=== PATIENT | male | born 1940 | race Caucasian/White ===

== ENCOUNTER 2023-02-26 06:57 | Emergency (ER) | payer MEDICARE, OTHER ==
[~2023-02-26] VITALS: Ht 170 cm; Wt 175.0 kg
[~2023-02-26 06:57] MED LIST: AMLO-250 PO; BLACK PEPPER PO; CALC1TAB84 PO; FISH1CAP15 PO; MULT-301 PO; MULT-517 PO; OMEG-109 PO; OMEG-118 PO; OMEP20CA18 PO; POTA10TA10 PO; PUMP160C PO; TRIA1TAB3 PO; TURMERIC PO; VIT1CAPS4 PO; [UNRECOGNIZED DRUG - CODE] PO; [UNRECOGNIZED DRUG - OTHER] PO
[2023-02-26 07:31] LABS: BASOPHILS % (AUTO) 0 % (0-10); EOSINOPHILS % (AUTO) 0 % (0-10); HEMATOCRIT 34 % (40-54); HEMOGLOBIN 11.2 g/dL (13.3-17.7); LYMPHOCYTES # (AUTO) 0.7 10^3/uL (1.0-4.0); LYMPHOCYTES % (AUTO) 5 % (12-44); MEAN CORPUSCULAR HEMOGLOBIN 29 pg (25-34); MEAN CORPUSCULAR HGB CONC 33 g/dL (32-36); MEAN CORPUSCULAR VOLUME 89 fL (80-99); MEAN PLATELET VOLUME 9.3 fL (9.0-12.2); MONOCYTES # (AUTO) 1.1 10^3/uL (0.0-1.0); MONOCYTES % (AUTO) 8 % (0-12); NEUTROPHILS # (AUTO) 10.8 10^3/uL (1.8-7.8); NEUTROPHILS % (AUTO) 86 % (42-75); PLATELET COUNT 199 10^3/uL (130-400); WHITE BLOOD COUNT 12.6 10^3/uL (4.3-11.0)
--- NOTE | 2023-02-26 07:31 | ED Abdominal Pain ---
General Chief Complaint: Abdominal/GI Problems Stated Complaint: BOWEL OBSTRUCTION Nursing Triage Note: Patient has presented to ER with cc of constipation for the last 10 days. He reports that he stopped taking marilax a few days ago. He did have a laxative a few days ago and had a small bowel movement but none since. He went to his doctor yesterday in [place] and was told to come to ER in [place] this morning to get enemas. Source of Information: Patient Exam Limitations: No Limitations History of Present Illness Date Seen by Provider: Feb 26, 2023 Time Seen by Provider: 06:59 Initial Comments 82-year-old male with past medical history of hypertension, hyperlipidemia, prostate cancer with mets coming in as a referral from his PCP due to "constipation". The patient states that he last had a bowel movement greater than 10 days ago. He is passing flatus. Had some nausea and nonbloody nonbilious emesis several days ago, but none recently. He does have decreased p.o. intake, he states mostly because he forgets to eat. He does endorse some pain, he does take hydrocodone regularly for chronic pain three times a day with no bowel regimen with this. Denies any fevers that he knows of, dysuria, or any other concerns. Of note, he did have a remote history of hernia surgery. Allergies and Home Medications Allergies Coded Allergies: No Known Drug Allergies (Unverified , 04/05/16) Patient Home Medication List Home Medication List Reviewed: Yes Amlodipine Besylate (Amlodipine Besylate) 5 Mg Tablet, 5 MG PO DAILY, (Reported) Entered as Reported by: JIGAR GAYLE on 04/05/16 1216 Calcium Carbonate/Vitamin D3 (Calcium 600 + Vit D 200 Tablet) 1 Each Tablet, 1 TAB PO BID, (Reported) Entered as Reported by: SAEID FATIMA on 08/04/16 1040 Fish Oil/Dha/Epa (Fish Oil 1,200 mg Fish Oil) 1 Each Capsule, 1,200 MG PO BID, (Reported) Entered as Reported by: JIGAR GAYLE on 04/05/16 1216 Multivitamin (Men's Multi-Vitamin) 1 Each Tablet, 1 TAB PO BID, (Reported) Entered as Reported by: SAEID FATIMA on 08/04/16 1040 Gila-3 Fatty Acids/Fish Oil (Fish Oil 1,200 mg Softgel) 1 Each Capsule, 1,200 MG PO BID, (Reported) Entered as Reported by: SAEID FATIMA on 08/04/16 1040 Omeprazole (Omeprazole) 20 Mg Capsule.dr, 20 MG PO DAILY, (Reported) Entered as Reported by: JIGAR GAYLE on 04/05/16 1216 Ondansetron (Ondansetron Odt) 4 Mg Tab.rapdis, 4 MG SL Q6H PRN for NAUSEA/VOMITING Prescribed by: DELMER YAÑEZ on 02/26/23 0908 Polyethylene Glycol 3350 (Miralax) 17 Gram Powd.pack, 17 GM PO TID Prescribed by: DELMER YAÑEZ on 02/26/23 0908 Potassium Chloride (Potassium Chloride) 10 Meq Tablet.er, 10 MEQ PO BID, (Reported) Entered as Reported by: JIGAR GAYLE on 04/05/16 1216 Pumpkin Seed Oil/Saw Wallace (Saw Wallace 160 mg Softgel) 160 Mg Capsule, 160 MG PO DAILY, (Reported) Entered as Reported by: JIGAR GAYLE on 04/05/16 1216 Sennosides/Docusate Sodium (Senna S Tablet) 8.6 Mg-50 Mg Tablet, 1 EACH PO DAILY Prescribed by: DELMER YAÑEZ on 02/26/23 09 Triamterene/Hydrochlorothiazid (Triamterene-Hctz 37.5-25 mg Tb) 1 Each Tablet, 1 EACH PO DAILY, (Reported) Entered as Reported by: JIGAR GAYLE on 04/05/16 1216 Vit C/Dewitt & Celery Ex/Grp E (Tart Dewitt Capsule) 1 Each Capsule, 1 CAP PO DAILY, (Reported) Entered as Reported by: SAEID FATIMA on 08/04/16 1040 Wheat Germ Oil (Wheat Germ Oil) 1 Ml Oil, PO BID, (Reported) Entered as Reported by: SAEID FATIMA on 08/04/16 1040 [Sarsaparilla Root] , 900 MG PO BID, (Reported) Entered as Reported by: SAEID FATIMA on 08/04/16 1040 [Turmeric W/Blkpepper] , 1 TAB PO BID, (Reported) Entered as Reported by: SAEID FATIMA on 08/04/16 1040 Review of Systems Review of Systems Constitutional: No fever Respiratory: No Symptoms Reported Cardiovascular: No Symptoms Reported Gastrointestinal: See HPI Genitourinary: No Symptoms Reported Musculoskeletal: no symptoms reported Skin: no symptoms reported Past Myhfyxa-Zmivcq-Rkqzff Hx Patient Social History Tobacco Use?: No Use of E-Cig and/or Vaping dev: No Substance use?: No Alcohol Use?: No Past Medical History Surgery/Hospitalization HX: hernia repair Surgeries: Yes Physical Exam Vital Signs Vital Signs - First Documented 02/26/23 07:12 Temp 37.0 Pulse 91 Resp 18 B/P (MAP) 144/96 (112) Pulse Ox 95 O2 Delivery Room Air Capillary Refill : Height/Weight/BMI Height: 5'10.00" Weight: 190lbs. 0.0oz. [id number]; 60.00 BMI Method: General Appearance: WD/WN, no apparent distress HEENT: PERRL/EOMI Neck: normal inspection Respiratory: chest non-tender, lungs clear, normal breath sounds, no respiratory distress, no accessory muscle use Cardiovascular: regular rate, rhythm Gastrointestinal: normal bowel sounds, soft; No distended, No guarding, No rebound; tenderness (mild global tenderness) Extremities: normal range of motion, non-tender, normal inspection, no calf tenderness, normal capillary refill Back: normal inspection, no CVA tenderness Neurologic/Psychiatric: no motor/sensory deficits, alert, normal mood/affect Skin: normal color, warm/dry Focused Exam Lactate Level 02/26/23 07:29: Lactic Acid Level 1.49 Lactic Acid Level Laboratory Tests Test 02/26/23 07:29 Lactic Acid Level 1.49 MMOL/L (0.50-2.00) Progress/Results/Core Measures Results/Orders Lab Results Laboratory Tests Test 02/26/23 07:29 Range/Units White Blood Count 12.6 H 4.3-11.0 10^3/uL Red Blood Count 3.81 L 4.30-5.52 10^6/uL Hemoglobin 11.2 L 13.3-17.7 g/dL Hematocrit 34 L 40-54 % Mean Corpuscular Volume 89 80-99 fL Mean Corpuscular Hemoglobin 29 25-34 pg Mean Corpuscular Hemoglobin Concent 33 32-36 g/dL Red Cell Distribution Width 14.3 10.0-14.5 % Platelet Count 199 130-400 10^3/uL Mean Platelet Volume 9.3 9.0-12.2 fL Immature Granulocyte % (Auto) 0 % Neutrophils (%) (Auto) 86 H 42-75 % Lymphocytes (%) (Auto) 5 L 12-44 % Monocytes (%) (Auto) 8 0-12 % Eosinophils (%) (Auto) 0 0-10 % Basophils (%) (Auto) 0 0-10 % Neutrophils # (Auto) 10.8 H 1.8-7.8 10^3/uL Lymphocytes # (Auto) 0.7 L 1.0-4.0 10^3/uL Monocytes # (Auto) 1.1 H 0.0-1.0 10^3/uL Eosinophils # (Auto) 0.0 0.0-0.3 10^3/uL Basophils # (Auto) 0.0 0.0-0.1 10^3/uL Immature Granulocyte # (Auto) 0.0 0.0-0.1 10^3/uL Neutrophils % (Manual) 90 % Lymphocytes % (Manual) 6 % Monocytes % (Manual) 4 % Sodium Level 132 L 135-145 MMOL/L Potassium Level 3.8 3.6-5.0 MMOL/L Chloride Level 100 98-107 MMOL/L Carbon Dioxide Level 20 L 21-32 MMOL/L Anion Gap 12 5-14 MMOL/L Blood Urea Nitrogen 18 7-18 MG/DL Creatinine 1.07 0.60-1.30 MG/DL Estimat Glomerular Filtration Rate 68 BUN/Creatinine Ratio 17 Glucose Level 110 H 70-105 MG/DL Lactic Acid Level 1.49 0.50-2.00 MMOL/L Calcium Level 8.9 8.5-10.1 MG/DL Corrected Calcium 9.1 8.5-10.1 MG/DL Magnesium Level 2.0 1.6-2.4 MG/DL Total Bilirubin 1.5 H 0.1-1.0 MG/DL Aspartate Amino Transf (AST/SGOT) 21 5-34 U/L Alanine Aminotransferase (ALT/SGPT) 10 0-55 U/L Alkaline Phosphatase 113 40-136 U/L Total Protein 6.6 6.4-8.2 GM/DL Albumin 3.8 3.2-4.5 GM/DL Lipase 20 8-78 U/L My Orders Orders - DELMER YAÑEZ MD Ct Abdomen/Pelvis W (02/26/23 07:17) Cbc With Automated Diff (02/26/23 07:17) Comprehensive Metabolic Panel (02/26/23 07:17) Lactic Acid Analyzer (02/26/23 07:17) Lipase (02/26/23 07:17) Magnesium (02/26/23 07:17) Manual Differential (02/26/23 07:29) Iohexol Injection (Omnipaque 350 Mg/Ml 1 (02/26/23 08:00) Received Contrast (Hold Metformin- Contr (02/26/23 08:00) Ns (Ivpb) (Sodium Chloride 0.9% Ivpb Bag (02/26/23 08:00) Methylnaltrexone Injection (Relistor Inj (02/26/23 09:15) Bisacodyl Suppository (Dulcolax Supposit (02/26/23 09:15) Medications Given in ED Current Medications Medications Dose Ordered Sig/Kriss Route Start Time Stop Time Status Last Admin Dose Admin Iohexol 100 ml ONCE ONCE IV 02/26/23 08:00 02/26/23 08:01 DC 02/26/23 08:13 80 ML Sodium Chloride 100 ml ONCE ONCE IV 02/26/23 08:00 02/26/23 08:01 DC 02/26/23 08:13 80 ML Vital Signs/I&O 02/26/23 07:12 Temp 37.0 Pulse 91 Resp 18 B/P (MAP) 144/96 (112) Pulse Ox 95 O2 Delivery Room Air Blood Pressure Mean: 112 Progress Progress Note : Progress Note 82-year-old male with above history coming in due to abdominal discomfort and decreased bowel movements. ABCs were intact and vitals were stable on presentation. Physical exam with abdominal tenderness but no signs of p eritonitis. An IV was placed and basic labs were obtained. CT imaging will also be ordered to evaluate for bowel obstruction versus diverticulitis versus some other etiology. His labs were significant for a mild leukocytosis which is nonspecific, normal potassium, normal creatinine, slightly elevated bilirubin at 1.5, normal AST and ALT, normal alk phos, normal lipase. CT abdomen pelvis on my interpretation with obvious bladder tumor with hydronephrosis on the left. No obvious obstruction. Per the radiology read, no acute findings other than some nonspecific findings around the gallbladder. I did a [id number] ultrasound, he does not have any significant pericholecystic fluid, and his sonographic Chance's was negative. He has no right upper quadrant pain at all, and the pain does not get worse with eating making cholecystitis unlikely. We will give him a subcu injection of methylnaltrexone as well as a Dulcolax suppository here followed by prescription for his constipation. I did discuss hospice care briefly with the patient, he will follow back up with his oncologist. I believe he is otherwise stable for discharge with outpatient follow-up. He was sent home with strict return precautions Diagnostic Imaging Diagonstic Imaging: CT (abd/pelvis) Comments [facility] [place], [place] NAME: ARGELIA GUSMAN [facility] REC#: [id number] PT STATUS: REG ER : 1940 PHYSICIAN: DELMER YAÑEZ MD ADMIT DATE: 02/26/23/ER FS Signed Date of Exam:02/26/23 CT ABDOMEN/PELVIS W PROCEDURE: CT abdomen and pelvis with contrast. TECHNIQUE: Multiple contiguous axial images were obtained through the abdomen and pelvis after administration of intravenous contrast. Auto Exposure Controls were utilized during the CT exam to meet ALARA standards for radiation dose reduction. All CT scans use one or more of the following dose optimizing techniques: automated exposure control, MA and/or KvP adjustment based on patient size and exam type or iterative reconstruction. INDICATION: Abdominal pain no bowel movement. FINDINGS: Included views of the chest demonstrates 0.9 cm pulmonary nodule within the right lower lobe. The liver demonstrates a 0.5 cm cyst within the right hepatic lobe. Scattered sub-diaphragmatic nodular thickening along the right diaphragm measuring up to 0.8 cm. The gallbladder wall is diffusely thickened and demonstrates surrounding fat stranding. There is a calcified gallstone within the gallbladder. The left kidney demonstrates moderate left hydronephrosis with surrounding fat stranding. There is a irregular thickening along the posterior bladder wall measuring 5.6 x 3.5 cm. Multifocal nodular opacity within the region of the seminal vesicles may represent direct extension into the seminal vesicles. Moderately distended urinary bladder. The right kidney is normal. No nephrolithiasis. There is a 8 cm simple cyst in the left kidney. Multinodular mass within the anterior abdominal wall measuring 5.1 x 2.8 cm (image 131 series 3). Sclerotic bone lesion within the L1 vertebral body and within the right acetabulum The spleen, adrenal glands, and pancreas are normal. Scattered diverticula within the sigmoid colon without evidence of acute diverticulitis. Aortoiliac atherosclerosis without aneurysm. IMPRESSION: Large mass within the urinary bladder causing moderate left hydronephrosis with associated fat stranding around the left ureter which may represent superimposed infection or reactive inflammatory change. Distended gallbladder with associated wall thickening may be seen with acute cholecystitis. Multinodular mass within the region of the seminal vesicles may represent a neoplastic process possibly from direct extension or metastasis of the bladder tumor. Nodular mass within the anterior abdominal wall concerning for peritoneal metastatic lesion. A sclerotic lesion within the right acetabulum and L1 vertebral body. 0.8 cm pulmonary nodule in the visualized right lower lobe. Dictated by: Dictated on workstation # [id number] Dict: 02/26/23822 Trans: 02/26/23837 [facility] [id number] Interpreted by: PRAVIN HUBER DO Electronically signed by: PRAVIN HUBER DO 02/26/23837 Departure Impression Primary Impression: Constipation Qualified Codes: K59.03 - Drug induced constipation Additional Impression: Prostate cancer metastatic to multiple sites Disposition: 01 HOME, SELF-CARE Condition: Stable Departure-Patient Inst. Decision time for Depature: 09:15 Referrals: FERNANDO THOMAS MD (PCP/Family) Primary Care Physician Patient Instructions: Constipation, Adult ED Add. Discharge Instructions: Your labs were reassuring today. For your constipation which we think is due to the hydrocodone, you need to be on a stool softener daily. Prescriptions were sent to your pharmacy. We also recommend taking MiraLAX several times a day until you are having regular bowel movements. If you get to the point where you are vomiting all of the time, cannot eat, and having severe abdominal pain, then we would want you to present back to an ER. Additionally, you had a CT scan today, it did not show obstruction. It did show the cancer you had mentioned to your bladder and multiple other areas. Your left kidney did have a mild obstruction with what is called hydronephrosis. This may cause left flank pain. Your kidney function, however, was normal. Scripts Ondansetron (Ondansetron Odt) 4 Mg Tab.rapdis 4 MG SL Q6H PRN for NAUSEA/VOMITING for 5 Days, #20 TAB Prov: DELMER YAÑEZ MD 02/26/23 Polyethylene Glycol 3350 (Miralax) 17 Gram Powd.pack 17 GM PO TID for 30 Days, #90 EACH Prov: DELMER YAÑEZ MD 02/26/23 Sennosides/Docusate Sodium (Senna S Tablet) 8.6 Mg-50 Mg Tablet 1 EACH PO DAILY for 30 Days, #30 TAB Prov: DELMER YAÑEZ MD 02/26/23 DELMER YAÑEZ MD Feb 26, 2023 07:31
[2023-02-26 07:49] LABS: ALBUMIN 3.8 GM/DL (3.2-4.5); BILIRUBIN,TOTAL 1.5 MG/DL (0.1-1.0); CALCIUM 8.9 MG/DL (8.5-10.1); CREATININE SERUM 1.07 MG/DL (0.60-1.30); POTASSIUM 3.8 MMOL/L (3.6-5.0); TOTAL PROTEIN 6.6 GM/DL (6.4-8.2)
[2023-02-26] MEDS ORDERED: HOLD METFORMIN - RECEIVED CONTRAST 20 ML VIAL IV SCH (08:00)
[2023-02-26] MEDS ORDERED: IOHEXOL 350 MG/ML 100 ML (OMNIPAQUE 350) VIAL IV ONE (08:00)
[2023-02-26] MEDS ORDERED: NS 100 ML (IVPB) BAG IV ONE (08:00)
--- NOTE | 2023-02-26 08:40 | Diagnostic Imaging Report ---
PROCEDURE: CT abdomen and pelvis with contrast. TECHNIQUE: Multiple contiguous axial images were obtained through the abdomen and pelvis after administration of intravenous contrast. Auto Exposure Controls were utilized during the CT exam to meet ALARA standards for radiation dose reduction. All CT scans use one or more of the following dose optimizing techniques: automated exposure control, MA and/or KvP adjustment based on patient size and exam type or iterative reconstruction. INDICATION: Abdominal pain no bowel movement. FINDINGS: Included views of the chest demonstrates 0.9 cm pulmonary nodule within the right lower lobe. The liver demonstrates a 0.5 cm cyst within the right hepatic lobe. Scattered sub-diaphragmatic nodular thickening along the right diaphragm measuring up to 0.8 cm. The gallbladder wall is diffusely thickened and demonstrates surrounding fat stranding. There is a calcified gallstone within the gallbladder. The left kidney demonstrates moderate left hydronephrosis with surrounding fat stranding. There is a irregular thickening along the posterior bladder wall measuring 5.6 x 3.5 cm. Multifocal nodular opacity within the region of the seminal vesicles may represent direct extension into the seminal vesicles. Moderately distended urinary bladder. The right kidney is normal. No nephrolithiasis. There is a 8 cm simple cyst in the left kidney. Multinodular mass within the anterior abdominal wall measuring 5.1 x 2.8 cm (image 131 series 3). Sclerotic bone lesion within the L1 vertebral body and within the right acetabulum The spleen, adrenal glands, and pancreas are normal. Scattered diverticula within the sigmoid colon without evidence of acute diverticulitis. Aortoiliac atherosclerosis without aneurysm. IMPRESSION: Large mass within the urinary bladder causing moderate left hydronephrosis with associated fat stranding around the left ureter which may represent superimposed infection or reactive inflammatory change. Distended gallbladder with associated wall thickening may be seen with acute cholecystitis. Multinodular mass within the region of the seminal vesicles may represent a neoplastic process possibly from direct extension or metastasis of the bladder tumor. Nodular mass within the anterior abdominal wall concerning for peritoneal metastatic lesion. A sclerotic lesion within the right acetabulum and L1 vertebral body. 0.8 cm pulmonary nodule in the visualized right lower lobe. Dictated by: Dictated on workstation # [id number]
[2023-02-26 09:00] LABS: LYMPHOCYTES % (MANUAL) 6 %; MONOCYTES % (MANUAL) 4 %; NEUTROPHILS % (MANUAL) 90 %
[2023-02-26] MEDS ORDERED: SENN-145 PO (09:08)
[2023-02-26] MEDS ORDERED: ONDA4TAB11 SL (09:08)
[2023-02-26] MEDS ORDERED: POLY17PO6 PO (09:08)
[2023-02-26] MEDS ORDERED: BISACODYL 10 MG SUPP (DULCOLAX) PR ONE (09:15)
[2023-02-26] MEDS ORDERED: METHYLNALTREXONE 12 MG/0.6 ML (RELISTOR) VIAL SQ ONE (09:15)
[2023-02-26 09:24] VITALS: BP 144/96
== END 2023-02-26 09:25 | disposition home or self-care (01) ==
LOC: EDUNIT# 06:57 → ER FS 06:58
DX: K59.00 Constipation, unspecified (principal); G89.29 Other chronic pain; C61 Malignant neoplasm of prostate; C79.9 Secondary malignant neoplasm of unspecified site; D72.829 Elevated white blood cell count, unspecified; E80.6 Other disorders of bilirubin metabolism; Z79.891 Long term (current) use of opiate analgesic
CPT/HCPCS: 36415; 74177; 80053; 83605; 83690; 83735; 85007; 85027

== ENCOUNTER 2023-04-08 07:33 | Emergency (ER) | payer MEDICARE, OTHER ==
[~2023-04-08] VITALS: Ht 170.2 cm; Wt 80.8 kg
[~2023-04-08 07:33] MED LIST changes: +ONDA4TAB11 SL; +POLY17PO6 PO; +SENN-145 PO
[2023-04-08 07:51] VITALS: BP 134/86
[2023-04-08] MEDS ORDERED: fentaNYL INJECTION 100 MCG/2 ML VIAL IVP STA ×2 (07:55→08:50)
[2023-04-08] MEDS ORDERED: NS IV 1000 ML 1,000 ML IV STA (07:55)
--- NOTE | 2023-04-08 07:55 | ED Fall/Injury ---
General Chief Complaint: Trauma-Non Activation Stated Complaint: FALL Nursing Triage Note: Patient brought in Via EMS with c/o Rt. rib pain and Rt. clavicle pain after fall this am. EMS Stated patient fell around 0300 this am and had to crawl to the phone. Patient denies hitting his head or LOC after or during incident. Patient states he has had multiple falls recently. Patient states he is currently on hospice d/t lung and prostate CA. Patient has skin tear to Rt. elbow, wrist, and by Rt. index finger. Patient has deformity with swelling to Rt. clavicle. Source: patient History of Present Illness Date Seen by Provider: Apr 08, 2023 Time Seen by Provider: 07:33 Initial Comments 82 yo male presenting by EMS from home. He was getting up to go to the bathroom and fell. He denies hitting his head or losing consciousness. He was having pain to his right clavicle and deformity as well as ribs and then low back. He has had multiple falls recently. He is currently on hospice due to lung and prostate cancer. He does have some skin tears on his right elbow and right hand. He complains of some diffuse abdominal pain and constipation in addition to the right rib pain and clavicle pain and lumbar spine pain. Occurred: this morning (around 3 am) Severity: severe Injuries/Pain Location: chest (right clavicle and ribs), abdomen, back Context: lost balance Loss of Consciousness: no loss of consciousness Modifying Factors: Worse With Movement Associated Symptoms (Fall): Abdominal Pain, Chest Pain; No Confusion, No Dizziness, No Headache, No Lightheadedness, No Muscle Spasms, No Nausea/Vomiting, No Neck Pain, No Ringing in Ears, No Seizures, No Shortness of Air, No Slurred Speech; Trouble Walking; No Vision Changes Allergies and Home Medications Allergies Coded Allergies: No Known Drug Allergies (Unverified , 04/05/16) Patient Home Medication List Home Medication List Reviewed: Yes Amlodipine Besylate (Amlodipine Besylate) 5 Mg Tablet, 5 MG PO DAILY, (Reported) Entered as Reported by: JIGAR GAYLE on 04/05/16 1216 Calcium Carbonate/Vitamin D3 (Calcium 600 + Vit D 200 Tablet) 1 Each Tablet, 1 TAB PO BID, (Reported) Entered as Reported by: SAEID FATIMA on 08/04/16 1040 Fish Oil/Dha/Epa (Fish Oil 1,200 mg Fish Oil) 1 Each Capsule, 1,200 MG PO BID, (Reported) Entered as Reported by: JIGAR GAYLE on 04/05/16 1216 Multivitamin (Men's Multi-Vitamin) 1 Each Tablet, 1 TAB PO BID, (Reported) Entered as Reported by: SAEID FATIMA on 08/04/16 1040 [place]-3 Fatty Acids/Fish Oil (Fish Oil 1,200 mg Softgel) 1 Each Capsule, 1,200 MG PO BID, (Reported) Entered as Reported by: SAEID FATIMA on 08/04/16 1040 Omeprazole (Omeprazole) 20 Mg Capsule.dr, 20 MG PO DAILY, (Reported) Entered as Reported by: JIGAR GAYLE on 04/05/16 1216 Ondansetron (Ondansetron Odt) 4 Mg Tab.rapdis, 4 MG SL Q6H PRN for NAUSEA/VOMITING Prescribed by: DELMER YAÑEZ on 02/26/23 0908 Polyethylene Glycol 3350 (Miralax) 17 Gram Powd.pack, 17 GM PO TID Prescribed by: DELMER YAÑEZ on 02/26/23 0908 Potassium Chloride (Potassium Chloride) 10 Meq Tablet.er, 10 MEQ PO BID, (Reported) Entered as Reported by: JIGAR GAYLE on 04/05/16 1216 Pumpkin Seed Oil/Saw Effie (Saw Effie 160 mg Softgel) 160 Mg Capsule, 160 MG PO DAILY, (Reported) Entered as Reported by: JIGAR GAYLE on 04/05/16 1216 Sennosides/Docusate Sodium (Senna S Tablet) 8.6 Mg-50 Mg Tablet, 1 EACH PO DAILY Prescribed by: DELMER YAÑEZ on 02/26/23 0908 Triamterene/Hydrochlorothiazid (Triamterene-Hctz 37.5-25 mg Tb) 1 Each Tablet, 1 EACH PO DAILY, (Reported) Entered as Reported by: JIGAR GAYLE on 04/05/16 1216 Vit C/Dewitt & Celery Ex/Grp E (Tart Dewitt Capsule) 1 Each Capsule, 1 CAP PO DAILY, (Reported) Entered as Reported by: SAEID FATIMA on 08/04/16 1040 Wheat Germ Oil (Wheat Germ Oil) 1 Ml Oil, PO BID, (Reported) Entered as Reported by: SAEID FATIMA on 08/04/16 104 [Sarsaparilla Root] , 900 MG PO BID, (Reported) Entered as Reported by: SAEID FATIMA on 08/04/16 1040 [Turmeric W/Blkpepper] , 1 TAB PO BID, (Reported) Entered as Reported by: SAEID FATIMA on 08/04/16 1040 Review of Systems Review of Systems Constitutional: No chills, No dizziness, No fever Eyes: Denies Blurred Vision, Denies Photophobia, Denies Vision Changes Ears, Nose, Mouth, Throat: no symptoms reported Respiratory: see HPI Cardiovascular: see HPI Gastrointestinal: see HPI, constipation Genitourinary: no symptoms reported Musculoskeletal: back pain (Lumbar spine pain), other (Pain and deformity to the right clavicle, pain to the right ribs) Skin: change in color (Bruising to the right clavicle area), lesions (Superficial skin tears on his right elbow and right hand) Psychiatric/Neurological: Denies Headache Past Fgtsdyg-Jtcled-Itcdiw Hx Patient Social History Tobacco Use?: No Use of E-Cig and/or Vaping dev: No Substance use?: No Alcohol Use?: No Immunizations Up To Date Influenza Vaccine Up-to-Date: Yes; Up-to-Date Past Medical History Surgery/Hospitalization HX: Lung and prostate CA Surgeries: Yes Physical Exam Vital Signs Vital Signs - First Documented 04/08/23 04/08/23 07:33 07:51 Temp 36.6 Pulse 85 Resp 16 B/P (MAP) 134/86 (102) Pulse Ox 95 O2 Delivery Room Air Capillary Refill : Height, Weight, BMI Height: 5'10.00" Weight: 190lbs. 0.0oz. 86.519661ir; 27.00 BMI Method: General Appearance: WD/WN, no apparent distress HEENT: PERRL/EOMI, pharynx normal Neck: non-tender, full range of motion, supple, normal inspection Cardiovascular: normal peripheral pulses, regular rate, rhythm Respiratory: No chest non-tender (tender to palpation right clavicle and right ribs); lungs clear, normal breath sounds, no respiratory distress, no accessory muscle use Gastrointestinal: normal bowel sounds, soft, no pulsatile mass; No distended, No guarding, No rebound; tenderness (diffuse mild tenderness) Rectal: deferred Extremities: normal range of motion, normal capillary refill, pedal edema (2+ pitting edema BLE), other (Superficial skin tear to the right elbow, right hand. 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 Healing abrasion to the right knee) [place] Coma Score Best Eye Response: (4) Open Spontaneously Best Verbal Response: (5) Oriented Best Motor Response: (6) Obeys Commands Pankaj Total: 15 Progress/Results/Core Measures Results/Orders Lab Results Laboratory Tests Test 04/08/23 08:06 04/08/23 09:02 Range/Units White Blood Count 12.0 H 4.3-11.0 10^3/uL Red Blood Count 3.42 L 4.30-5.52 10^6/uL Hemoglobin 9.7 L 13.3-17.7 g/dL Hematocrit 30 L 40-54 % Mean Corpuscular Volume 88 80-99 fL Mean Corpuscular Hemoglobin 28 25-34 pg Mean Corpuscular Hemoglobin Concent 32 32-36 g/dL Red Cell Distribution Width 14.5 10.0-14.5 % Platelet Count 208 130-400 10^3/uL Mean Platelet Volume 9.7 9.0-12.2 fL Immature Granulocyte % (Auto) 0 % Neutrophils (%) (Auto) 89 H 42-75 % Lymphocytes (%) (Auto) 4 L 12-44 % Monocytes (%) (Auto) 6 0-12 % Eosinophils (%) (Auto) 0 0-10 % Basophils (%) (Auto) 0 0-10 % Neutrophils # (Auto) 10.7 H 1.8-7.8 10^3/uL Lymphocytes # (Auto) 0.5 L 1.0-4.0 10^3/uL Monocytes # (Auto) 0.7 0.0-1.0 10^3/uL Eosinophils # (Auto) 0.1 0.0-0.3 10^3/uL Basophils # (Auto) 0.0 0.0-0.1 10^3/uL Immature Granulocyte # (Auto) 0.1 0.0-0.1 10^3/uL Neutrophils % (Manual) 93 % Lymphocytes % (Manual) 4 % Monocytes % (Manual) 3 % Sodium Level 135 135-145 MMOL/L Potassium Level 3.9 3.6-5.0 MMOL/L Chloride Level 103 98-107 MMOL/L Carbon Dioxide Level 22 21-32 MMOL/L Anion Gap 10 5-14 MMOL/L Blood Urea Nitrogen 17 7-18 MG/DL Creatinine 0.86 0.60-1.30 MG/DL Estimat Glomerular Filtration Rate 85 BUN/Creatinine Ratio 20 Glucose Level 103 70-105 MG/DL Calcium Level 8.7 8.5-10.1 MG/DL Corrected Calcium 9.0 8.5-10.1 MG/DL Total Bilirubin 0.6 0.1-1.0 MG/DL Aspartate Amino Transf (AST/SGOT) 30 5-34 U/L Alanine Aminotransferase (ALT/SGPT) 13 0-55 U/L Alkaline Phosphatase 107 40-136 U/L Total Protein 6.0 L 6.4-8.2 GM/DL Albumin 3.6 3.2-4.5 GM/DL Urine Color YELLOW Urine Clarity CLEAR Urine pH 6.5 5-9 Urine Specific Ione 1.010 L 1.016-1.022 Urine Protein TRACE H NEGATIVE Urine Glucose (UA) NEGATIVE NEGATIVE Urine Ketones NEGATIVE NEGATIVE Urine Nitrite NEGATIVE NEGATIVE Urine Bilirubin NEGATIVE NEGATIVE Urine Urobilinogen 0.2 < = 1.0 MG/DL Urine Leukocyte Esterase NEGATIVE NEGATIVE Urine RBC (Auto) 1+ H NEGATIVE Urine RBC 50-100 H /HPF Urine WBC NONE /HPF Urine Squamous Epithelial Cells 5-10 /HPF Urine Crystals NONE /LPF Urine Bacteria TRACE /HPF Urine Casts PRESENT /LPF Urine Hyaline Casts 2-5 H /LPF Urine Mucus SMALL H /LPF Urine Culture Indicated NO My Orders Orders - RUBEN LANDRY MD Comprehensive Metabolic Panel (04/08/23 07:55) Ua Culture If Indicated (04/08/23 07:55) Ed Iv/Invasive Line Start (04/08/23 07:55) Cbc With Automated Diff (04/08/23 07:55) Ct Chest/Abdomen/Pelvis W (04/08/23 07:55) Fentanyl Injection (Fentanyl Injection (04/08/23 07:55) Ns Iv 1000 Ml (Sodium Chloride 0.9%) (04/08/23 07:55) Manual Differential (04/08/23 08:06) Fentanyl Injection (Fentanyl Injection (04/08/23 08:50) Iohexol Injection (Omnipaque 350 Mg/Ml 1 (04/08/23 09:15) Received Contrast (Hold Metformin- Contr (04/08/23 09:15) Ns (Ivpb) 100 Ml (Sodium Chloride 0.9% 1 (04/08/23 09:15) Medications Given in ED Current Medications Medications Dose Ordered Sig/Kriss Route Start Time Stop Time Status Last Admin Dose Admin Iohexol 100 ml ONCE ONCE IV 04/08/23 09:15 04/08/23 09:16 DC 04/08/23 09:26 75 ML Sodium Chloride 100 ml ONCE ONCE IV 04/08/23 09:15 04/08/23 09:16 DC 04/08/23 09:26 100 ML Vital Signs/I&O 04/08/23 04/08/23 07:33 07:51 Temp 36.6 36.6 Pulse 85 85 Resp 16 16 B/P (MAP) 134/86 (102) 134/86 (102) Pulse Ox 95 O2 Delivery Room Air Room Air Blood Pressure Mean: 102 Progress Progress Note #1: Progress Note Potential diagnosis of electrolyte abnormality, metastatic disease, rib fractures, clavicle fracture, lumbar spine compression fracture, constipation, hemothorax, pneumothorax, intra-abdominal hemorrhage. Obtain CT scan of the chest abdomen and pelvis with IV contrast to help evaluate for internal bleeding as well as to evaluate his ribs and right clavicle for fracture. He has an obvious fracture to his right clavicle on exam with deformity and overriding fragment. Obtain labs from his peripheral IV that was started by EMS. Send complete blood count, comprehensive metabolic profile, lipase, urinalysis. Fentanyl 50 mcg IV for his severe pain and normal saline 1 L IV fluid bolus for hydration. Progress Note #2: Time: 09:30 Progress Note Complete blood count shows his white blood cell count at the upper limit of normal at 12,000 and he is anemic with a hemoglobin of 9.7. He has a mild left shift with 89% neutrophils. His comprehensive metabolic profile did not show any acute electrolyte abnormalities, renal failure, hepatic failure. His urinalysis was concentrated with blood in the urine but not having white blood cells and bacteria for UTI. On my personal interpretation and review of his CT scan of the chest abdomen and pelvis with IV contrast to look like he had several rib fractures on the right side in addition to the right clavicle fracture. Progress Note #3: Time: 10:[address] does show right clavicle fracture as well as at least 3 rib fractures on the right side. There is a possible sternum fracture. He has some underlying metastatic disease. He does have a growth from the prostate into the bladder. No acute intrathoracic or intra-abdominal bleeding. Discussed the case with Dr. Kirk, hospitalist for the [facility] service. She was a dvised of the patient's presentation with metastatic lung and prostate cancer and recently placed on hospice care. He had a fall at 3 AM and has multiple fractures on the right side of his chest and his ribs and right clavicle. He has unsteady gait and difficulty getting around. Even with pain medicine he was still complaining of severe pain with any movement. He would not be able to care for himself at home and is currently self-care and living by himself. He has been getting hospice care from [facility] hospice group. He is a DNR that was signed with hospice. He has expressed interest in going to [facility] or someplace that he can get more help. She accepted him for admission to [facility] for his injuries and fall. Plan to look into [facility] or residential placement after his inpatient stay. 1024 after further discussion with the family and with his hospice nurse from [facility], he has apparently had some paranoia and was concerned that his family or someone was going to steal his things. That was part of why he had been not allowing family to come help him and had been doing self-care and living on his own. Diagnostic Imaging Diagonstic Imaging: CT Plain Films/CT/US/NM/MRI: chest, abdomen, pelvis Comments [facility], [place] NAME: UZMAARGELIA LINDSAY [facility] REC#: [id number] PT STATUS: REG ER : 1940 PHYSICIAN: RUBEN LANDRY MD ADMIT DATE: 04/08/23/ER FS Draft Date of Exam:04/08/23 CT CHEST/ABDOMEN/PELVIS W PROCEDURE: CT chest, abdomen, and pelvis with contrast. TECHNIQUE: Multiple contiguous axial images were obtained through the chest, abdomen, and pelvis after the administration of intravenous contrast. Auto Exposure Controls were utilized during the CT exam to meet ALARA standards for radiation dose reduction. INDICATION: Trauma, fall with chest, abdominal and pelvic pain. Patient does have a history of prostate carcinoma. Correlation is made with prior CT from 02/26/2023. FINDINGS: There is a comminuted fracture of the right clavicle with surrounding inflammation. No definite mediastinal hematoma or great vessel injury is identified. No pericardial or pleural fluid is identified. No definite pulmonary contusion or pneumothorax is identified. Right lower lobe nodule is stable. There appears to be a fracture involving the lateral aspect of the right 4th, 6th and 7th ribs, nondisplaced. There appears to be fracture of the body of the sternum as well with slight anterior displacement of the distal portion. However, age of this is indeterminate. No significant associated soft tissue swelling at the level of fracture seen and this could be chronic. CT abdomen and pelvis: No focal liver or splenic laceration is seen. Gallbladder shows moderate distention. The pancreas and adrenal glands are unremarkable. A left-sided hydroureteronephrosis traced to the level of the bladder is again noted similar to prior exam. Aorta is nonaneurysmal. Bowel loops appear nonobstructed. There is diverticulosis of the sigmoid and descending colon but no evidence of acute diverticulitis. There is no ascites. The lobulated mass in the anterior midline abdomen is similar to prior exam and again suggestive of a peritoneal implant. Mass at the bladder base is similar to prior exam. Healed right-sided inferior pubic ramus fracture is noted. There are numerous sclerotic foci within the pelvis as well as thoracic and lumbar spine suggestive of osteoblastic metastases. IMPRESSION: 1. Comminuted right clavicle fracture as well as numerous right-sided rib fractures. There is also an age-indeterminate sternal fracture. No pulmonary contusion or pneumothorax is detected. 2. No evidence of abdominal or pelvic visceral injury. 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 Mass at the bladder base as well as moderate left-sided hydroureteronephrosis is unchanged. There is uncomplicated diverticulosis. 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 Dictated on workstation # [id number] Dict: 04/08/23 0942 Trans: 04/08/23 0956 [id number] Interpreted by: NAIMA SAINI MD Electronically signed by: Reviewed: Reviewed by Me Departure Impression Primary Impression: Displaced fracture of shaft of right clavicle, initial encounter for closed fracture Additional Impressions: Fall at home Qualified Codes: W19.XXXA - Unspecified fall, initial encounter; Y92.009 - Unspecified place in unspecified non-institutional (private) residence as the place of occurrence of the external cause Skin tear of right elbow without complication Qualified Codes: S51.011A - Laceration without foreign body of right elbow, initial encounter Skin tear of right hand without complication Qualified Codes: S61.411A - Laceration without foreign body of right hand, initial encounter Low back pain at multiple sites Closed fracture of multiple ribs of right side Qualified Codes: S22.41XA - Multiple fractures of ribs, right side, initial encounter for closed fracture Disposition: 30 STILL A PATIENT Condition: Stable Transfer Transfer Reason: Patient preference Time Spoke to Accepting Phy: 10:00 Transfer Progress Notes Discussed the case with Dr. Kirk, hospitalist for the [facility] service. She was advised of the patient's presentation with metastatic lung and prostate cancer and recently placed on hospice care. He had a fall at 3 AM and has multiple fractures on the right side of his chest and his ribs and right clavicle. He has unsteady gait and difficulty getting around. Even with pain medicine he was still complaining of severe pain with any movement. He would not be able to care for himself at home and is currently self-care and living by himself. He has been getting hospice care from [facility] hospice group. He is a DNR that was signed with hospice. He has expressed interest in going to [facility] or someplace that he can get more help. She accepted him for admission to [facility] for his injuries and fall. Plan to look into [facility] or residential placement after his inpatient stay. Transfer Facility: [facility] Method of Transfer: EMS Departure-Patient Inst. Referrals: JOSE E BOLAÑOS MD (PCP) Primary Care Physician RUBEN LANDRY MD Apr 08, 2023 07:55
[2023-04-08 08:19] LABS: BASOPHILS % (AUTO) 0 % (0-10); EOSINOPHILS # (AUTO) 0.1 10^3/uL (0.0-0.3); EOSINOPHILS % (AUTO) 0 % (0-10); HEMATOCRIT 30 % (40-54); HEMOGLOBIN 9.7 g/dL (13.3-17.7); LYMPHOCYTES # (AUTO) 0.5 10^3/uL (1.0-4.0); LYMPHOCYTES % (AUTO) 4 % (12-44); MEAN CORPUSCULAR HEMOGLOBIN 28 pg (25-34); MEAN CORPUSCULAR HGB CONC 32 g/dL (32-36); MEAN CORPUSCULAR VOLUME 88 fL (80-99); MEAN PLATELET VOLUME 9.7 fL (9.0-12.2); MONOCYTES # (AUTO) 0.7 10^3/uL (0.0-1.0); MONOCYTES % (AUTO) 6 % (0-12); NEUTROPHILS # (AUTO) 10.7 10^3/uL (1.8-7.8); NEUTROPHILS % (AUTO) 89 % (42-75); PLATELET COUNT 208 10^3/uL (130-400)
[2023-04-08 09:01] LABS: CREATININE SERUM 0.86 MG/DL (0.60-1.30); POTASSIUM 3.9 MMOL/L (3.6-5.0)
[2023-04-08 09:02] LABS: ALBUMIN 3.6 GM/DL (3.2-4.5); BILIRUBIN,TOTAL 0.6 MG/DL (0.1-1.0); CALCIUM 8.7 MG/DL (8.5-10.1)
[2023-04-08 09:14] LABS: BILIRUBIN,URINE NEGATIVE (NEGATIVE); CLARITY,URINE CLEAR; COLOR,URINE YELLOW; GLUCOSE, URINE (UA) NEGATIVE (NEGATIVE); KETONES,URINE NEGATIVE (NEGATIVE); LEUKOCYTE ESTERASE ,URINE NEGATIVE (NEGATIVE); NITRITE,URINE NEGATIVE (NEGATIVE); PH,URINE 6.5 (5-9); PROTEIN,URINE TRACE (NEGATIVE)
[2023-04-08] MEDS ORDERED: NS 100 ML (IVPB) BAG IV ONE (09:15)
[2023-04-08] MEDS ORDERED: HOLD METFORMIN - RECEIVED CONTRAST 20 ML VIAL IV SCH (09:15)
[2023-04-08] MEDS ORDERED: IOHEXOL 350 MG/ML 100 ML (OMNIPAQUE 350) VIAL IV ONE (09:15)
[2023-04-08 09:19] LABS: BACTERIA,URINE TRACE /HPF; RBC,URINE 50-100 /HPF
[2023-04-08 09:25] LABS: LYMPHOCYTES % (MANUAL) 4 %; MONOCYTES % (MANUAL) 3 %; NEUTROPHILS % (MANUAL) 93 %
--- NOTE | 2023-04-08 09:57 | Diagnostic Imaging Report ---
PROCEDURE: CT chest, abdomen, and pelvis with contrast. TECHNIQUE: Multiple contiguous axial images were obtained through the chest, abdomen, and pelvis after the administration of intravenous contrast. Auto Exposure Controls were utilized during the CT exam to meet ALARA standards for radiation dose reduction. INDICATION: Trauma, fall with chest, abdominal and pelvic pain. Patient does have a history of prostate carcinoma. Correlation is made with prior CT from 02/26/2023. FINDINGS: There is a comminuted fracture of the right clavicle with surrounding inflammation. No definite mediastinal hematoma or great vessel injury is identified. No pericardial or pleural fluid is identified. No definite pulmonary contusion or pneumothorax is identified. Right lower lobe nodule is stable. There appears to be a fracture involving the lateral aspect of the right 4th, 6th and 7th ribs, nondisplaced. There appears to be fracture of the body of the sternum as well with slight anterior displacement of the distal portion. However, age of this is indeterminate. No significant associated soft tissue swelling at the level of fracture seen and this could be chronic. CT abdomen and pelvis: No focal liver or splenic laceration is seen. Gallbladder shows moderate distention. The pancreas and adrenal glands are unremarkable. A left-sided hydroureteronephrosis traced to the level of the bladder is again noted similar to prior exam. Aorta is nonaneurysmal. Bowel loops appear nonobstructed. There is diverticulosis of the sigmoid and descending colon but no evidence of acute diverticulitis. There is no ascites. The lobulated mass in the anterior midline abdomen is similar to prior exam and again suggestive of a peritoneal implant. Mass at the bladder base is similar to prior exam. Healed right-sided inferior pubic ramus fracture is noted. There are numerous sclerotic foci within the pelvis as well as thoracic and lumbar spine suggestive of osteoblastic metastases. IMPRESSION: 1. Comminuted right clavicle fracture as well as numerous right-sided rib fractures. There is also an age-indeterminate sternal fracture. No pulmonary contusion or pneumothorax is detected. 2. No evidence of abdominal or pelvic visceral injury. 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 Mass at the bladder base as well as moderate left-sided hydroureteronephrosis is unchanged. There is uncomplicated diverticulosis. 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 Dictated by: Dictated on workstation # [id number]
== END 2023-04-08 11:04 | disposition still patient (30) ==
LOC: EDUNIT# 07:33 → ER FS 07:34
DX: S42.021A Displaced fracture of shaft of right clavicle, initial encounter for closed fracture (principal); S22.41XA Multiple fractures of ribs, right side, initial encounter for closed fracture; S51.011A Laceration without foreign body of right elbow, initial encounter; S61.411A Laceration without foreign body of right hand, initial encounter; M54.50 Low back pain, unspecified; D64.9 Anemia, unspecified; R10.84 Generalized abdominal pain; C34.90 Malignant neoplasm of unspecified part of unspecified bronchus or lung; C61 Malignant neoplasm of prostate; W18.30XA Fall on same level, unspecified, initial encounter; Y92.009 Unspecified place in unspecified non-institutional (private) residence as the place of occurrence of the external cause
CPT/HCPCS: 36415; 71260; 74177; 80053; 81000; 85007; 85027; Q9967